=== PATIENT | female | born 1945 | race Caucasian/White ===

== ENCOUNTER 2019-01-23 06:10 | Inpatient (IN) | payer MEDICARE, OTHER, SELFPAY ==
[2019-01-09 09:02] VITALS: BMI 20.1
[2019-01-23] VITALS (17 sets, daily range): BP systolic 107–135; BP diastolic 51–86; PULSE 62–97; RESP 8–19; TEMP 36–36.6; O2SAT 95–100; BMI 19.6
--- NOTE | 2019-01-23 | DI.RAD.S_ITS ---
PROCEDURE: XR LUMBAR SPINE 2-3V INDICATIONS: NEW SCREWS INSERTED TECHNIQUE: 2 fluoroscopic views of the lumbar spine were acquired. COMPARISON: [facility], , -SPINE 2-3 VIEWS, 10/06/2016, 8:38. FINDINGS: Pedicle screws and rods at L4, L5, S1 in the expected position. Intervertebral body spacers at L4-L5 and L5-S1. Raytech sponge marker or overlying the right pedicle screws. IMPRESSION: L4-S1 fixation hardware is in expected position. Dictated by: Santos Layton M.D. on 01/23/2019 at 10:35 Approved by: Santos Layton M.D. on 01/23/2019 at 10:36
[2019-01-23] MEDS: LACTATED RINGERS 1,000 ML 42 ML IV (06:45)
--- NOTE | 2019-01-23 07:50 | PM.PREOP ---
Pre-operative Note Interval Note History & Physical reviewed/Exam performed by Physician: Yes Changes to H&P: No
[2019-01-23] MEDS: CEFAZOLIN 2 GM/100 ML FROZ.PIGGY IV (07:52)
--- NOTE | 2019-01-23 08:25 | SUR.OPER ---
Prone on spine table, head in foam head support, padded chest and pelvic supports, gel pad at knees, lower legs supported by pillows; nipples, genitalia and toes free of pressure, arms secured on foam padded arm boards at <90 degrees abduction. Tape over blanket at thigh secured to table.
[2019-01-23] MEDS: BUPIVACAINE 0.25% W/ EPI 30 ML VIAL INJ (08:32)
[2019-01-23] MEDS: BUPIVACAINE LIPOSOME 266 MG/20 ML VIAL INJ (08:33)
--- NOTE | 2019-01-23 09:56 | PM.OP.1 ---
Operative Date/Time/Diagnoses Date of procedure: 01/23/19 Time of procedure: 07:56 Pre-op diagnosis: 1. Hx of L4-5, L5-S1 fusion with hardware loosening 2. Lumbar radiculopathy Post-op diagnosis: same Procedure & Clinicians Procedure: 1. L4-5, L5-S1 Posterior segmental instrumentation with pedicle screw placement in L4, L5, S1 2. L4-5, L5-S1 segemental hardware removal with exploration of fusion 3. Revision L4-5, L5-S1 hemilaminectomy 4. L4-5, L5-S1 posterolateral fusion Same procedure as scheduled: Yes Indications: Patient has been having chronic back pain and worsening lumbar radiculopathy. Patient is 2 years post lumbar fusion and was doing well until 3 months ago. Patient has been having progressively worsening pain that limits her mobility and activity of daily living. Patient failed multiple conservative management with worsening pain weakness and numbness in her lower extremity. Patient has been having difficulty performing activity of daily living. After discussing risks benefits of treatment options, patient elected proceed with surgery. Surgeon: Nas Coughlin Electric Motor Repairman: Allyson Miles Click Yes if Unassisted: No Anesthesia Type: General Operative Notes Closure Type: primary Specimen(s): none sent Prosthetic devices, grafts, tissues, transplants, or devices: Globus revolve screws Estimated Blood Loss (mL): 50 Blood products transfused: none Procedure in detail: Patient was seen in the preoperative area. Risks and benefits of the surgery was discussed with the patient. Informed consent was obtained from the patient and placed in the chart. Surgical site was marked. Patient was taken to the operative room. General anesthesia was administered. Prophylactic antibiotic was given to the patient less than 30 min before the incision was made. Patient was placed into a prone position on the Tank table. Patient's back was then prepped and draped in the sterile fashion. Time-out was performed at this time. Using patient's previous scar incision was made over the L4-5 L5-S1 interval on the right side. Fascia was incised in line with skin incision. Patient's previously placed hardware over the L4-5 L5-S1 level was identified by dissecting down to the level the hardware using a Bovie and a Dickson. The locking caps which was removed using globus screwdriver. The locking radha was then removed from the tulips of the pedicle screws using a Lindsay. The pedicle screws were then removed using the screwdriver. The screws were found to have decreased purchase. At this time a mirror image incision was made on the left side. The fascia was incised in line with the skin incision. Patient's previously placed hardware on the left side was then removed in the same fashion as it was on the right side. The hardware was also found to have decreased purchase similar to the right side. The fusion mass on the left side was exposed by performing a left-sided hemilaminectomy at L4-5 L5-S1 level. The hemilaminectomy was performed at L4-5, L5-S1 using the Kerrison rongeur to undercut the lamina as well removing additional epidural scar tissue for purpose of decompressing the epidural space. The fusion mass was explored and was found have visible motion indicating pseudoarthrosis. Globus MARS retractor was inserted and docked onto the L4-5 L5-S1 posterolateral gutter. Using the power drill, posterior-lateral decortication was performed at L4-5 L5-S1 level until bleeding cortical bone was identified. The remaining bone grafting material was placed into the L4-5 L5-S1 posterior lateral gutter he order to accomplish posterolateral fusion at the L4-5 L5-S1 level. Using the double C-arm technique, pedicle screws were placed into the L4-L5 and S1 pedicles bilaterally. This was done by placing the Jamshidi needle into the pedicles, then placing the guidewires over the Jamshidi needle, and finally placing the cannulated screws over the guidewires bilaterally. Pedicle screws were increased to 7.5 mm in diameter in order to obtain better purchase. After the pedicle screws were placed, 2 titanium rods was locked into the heads of the pedicle screws using locking caps and torque limiting screwdriver. Total 6 pedicle screws were placed. After all the hardware was placed, and confirmed with AP and lateral C-arm imaging, the wound was then irrigated with sterile normal saline and packed with Ray-Maximus gauze for 3 min to accomplish hemostasis. After the gauze was removed the deep fascia was closed with #1 Vicryl suture. The subcutaneous layer was closed with 2-0 Vicryl. The skin was closed with skin adalberto. Patient tolerated the procedure well. There were no complications. Complications: none Post-operative Condition: stable Disposition: PACU Plan for aftercare: Admit to inpatient hospital
--- NOTE | 2019-01-23 10:45 | SUR.PHASEI ---
Patient A/O x 4. HSIEH's x 4. Tolerating po. Denies pain and nausea.
[2019-01-23] MEDS: SODIUM CHLORIDE 0.9% 1,000 ML 100 ML IV ×2 (11:29→22:00)
[2019-01-23] MEDS: HYDROCODONE/ACET 5/325 TABLET 2 TAB PO ×2 (11:44→17:40)
[2019-01-23] MEDS: hydrOXYzine pamoate 25 MG CAPSULE PO (12:43)
--- NOTE | 2019-01-23 13:30 | PT.IIE ---
Current Diagnoses Unspecified fracture of unspecified lumbar vertebra, subsequent encounter for fracture with nonunion (01/23/19) Other mechanical complication of other internal orthopedic devices, implants and grafts, initial encounter (01/23/19) Pain due to internal orthopedic prosthetic devices, implants and grafts, initial encounter (01/23/19) Surgery Performed Operation Date: 01/23/19 07:45 Actual Procedures p L4-S1 HWR, exploration of fusion, PSF L4-s1 with instrumentation - Nas Coughlin MD Surgical History (Last Updated 01/09/19 @ 09:45 by Emily Rangel RN) History of total right hip arthroplasty (Acute ~2009) Hx of appendectomy (Acute) Hx of hand surgery (Acute) Hx of tubal ligation (Acute) S/P lumbar fusion (Acute 10/06/16) Medical History (Last Updated 01/09/19 @ 09:45 by Emily Rangel RN) Arthritis (Acute) Atrial tachycardia (Acute ~09/2016) Back pain (Acute) Cervical spine pain (Acute) Former smoker (Acute) History of 1 spontaneous (Acute) Hypoglycemia (Acute) Impaired hearing (Acute) L3 vertebral fracture (Acute ~09/2018) Palpitations (Acute) Postoperative atrial fibrillation (Acute ~09/2016) Seasonal allergies (Acute) Physical Therapy Inpatient Evaluation/Re-Eval M1 PT/OT-IP Prior Functional Status Start: 01/23/19 14:54 Freq: NEEDED Status: Active Protocol: Document 01/23/19 13:30 AB (Rec: 01/23/19 15:10 AB [id number]) Medical Review Prior Functional Status Medical History Reviewed Yes Communication able to make needs known Mobility and Gait pt stated that she is independent with all mobilities and ambulation without AD; has used her crutches for 1-2 weeks prior to surgery due to back pain Social History Household Members spouse Living Arrangements House Number of Floors (Floors) One Floor Number of Stairs To Enter/Railing? 3 steps enter with L rail ascending Home Environment Standard Height Toilet,Walk in Shower,Built-In Shower Seat Home Equipment Front Wheel Walker,Crutches, Raised Toilet Seat Without Armrests Additional Social History Comment pt has a toilet safety frame M2 PT-IP Current Condition Start: 01/23/19 14:54 Freq: NEEDED Status: Active Protocol: Document 01/23/19 13:30 AB (Rec: 01/23/19 15:10 AB [id number]) Physical Therapy Current Condition Current Condition Evaluation Date 01/23/19 Treatment Diagnosis s/p L4-5, L5S1 fusion/lami; difficulty in walking Onset Date 01/23/19 Precautions Lumbar Precautions Log Roll,No Twisting,Limit Bending,Lifting Restriction of 10 lbs,Gait Belt above Incisional Area M3 PT-IP Subjective Start: 01/23/19 14:54 Freq: NEEDED Status: Active Protocol: Document 01/23/19 13:30 AB (Rec: 01/23/19 15:10 AB [id number]) Subjective Physical Therapy Visit Type Type Initial Evaluation Visit Start Time 13:30 Visit Stop Time 14:04 Total Visit Minutes 34 Number of CLIENT EVALUATOR Visits 0 Physical Therapy Visit Comments Patient Comments pt requesting to use the toilet Therapy Pain Assessment Pain When Pain Assessed At Rest Pain Present Pain Present Pain Reported Location Lower Back Intensity 4 Scale Used Numeric (1 - 10) Pain Behaviors Guarding Pain Management Techniques Timing of Activity with Medications M4 PT-IP Mobility and Gait Start: 01/23/19 14:54 Freq: NEEDED Status: Active Protocol: Document 01/23/19 13:30 AB (Rec: 01/23/19 15:10 AB [id number]) PT-Bed Mobility Assessment Rolling Level of Assist Standby Assistance Supine to Sit Supine to Sit Standby Assistance PT-Transfer Assessment Sit to and From Stand Sit to and from Stand Minimal Assistance,1 Person Assistance,Use of Upper Extremities Equipment Transfer Assistive Device Gait Belt,Front Wheeled Walker Orthotic/Prosthetic Devices or Brace: No Transfers Transfer Destination Toilet Transfer Technique pt ambulated using FWW Transfer Ability Level of Assist Minimal Assistance,1 Person Assistance,Use of Upper Extremities Comments Mobility Comments BP: 141/72 pt completed log roll supine to sit SBA and cues for techniques. pt was able to sit on EOB SBA. completed sit to stand min A and cues. pt ambulated towards the toilet using FWW ~ 12 ft min A and cues. pt required mod A for controlled descent to the the toilet. completed sit to stand from the toilet using grab bar to assist min A and cues. ambulated towards the sink using FWW ~ 10 ft and was able to maintain standing leanign on counter for support CGA while doing handwashing. pt agreed to sit up on the chair. ambulated using FWW towards the chair min A. positioned pt on the chair. call light and table placed within reach. Gait Assessment Gait Gait Assistance Required: Minimum Assistance Distance (Feet) 12 Able to Maintain Weight Bearing Status Yes During Gait Assistive Devices Assistive Device Gait Belt,Front Wheeled Walker Orthotic/Prosthetic Devices or Brace: No Gait Deviations General Gait Pattern Antalgic,Decreased Stride Length,Decreased Feet Clearance Factors Limiting Gait Function Factors Limiting Gait Function Decreased Activity Tolerance, Decreased Strength,Pain,Poor Balance,Poor Safety Awareness PT-Balance Assessment Sitting Balance and Reactions Static Sitting Balance Ability Good Dynamic Sitting Balance Ability Good Standing Balance and Reactions Static Standing Balance Ability Fair Dynamic Standing Balance Ability Fair Device Used FWW M5 PT-IP Objective Assessments Start: 01/23/19 14:54 Freq: NEEDED Status: Active Protocol: Document 01/23/19 13:30 AB (Rec: 01/23/19 15:10 AB [id number]) Orientation Orientation/Cognition Level of Alertness Alert Orientation Name,Place,Situation Safety Awareness Decreased Safety Awareness Gross Range of Motion Lower Extremity ROM Assessment Within Functional Limits Strength Lower Extremity Strength Assessment Bilaterally Impaired Comments Strength Comments RLE: 4-/5 LLE: 3+/5 Coordination Assessment Gross Coordination Gross Coordination WNL Muscle Tone Muscle Tone WNL Yes M6 PT-IP Treatment Start: 01/23/19 14:54 Freq: NEEDED Status: Active Protocol: Document 01/23/19 13:30 AB (Rec: 01/23/19 15:10 AB [id number]) Physical Therapy Treatment Education Education Provided Precautions,Weight Bearing Status,Post-Op Packet,Safety M7 PT-IP Assessment and Plan Start: 01/23/19 14:54 Freq: NEEDED Status: Active Protocol: Document 01/23/19 13:30 AB (Rec: 01/23/19 15:10 AB [id number]) PT Summary Assessment and Plan Potential Rehabilitation Potential Good Status of Condition at Evaluation Stable Summary Impairments Pain,ROM,Strength,Balance, Coordination,Sensation,Bed Mobility,Transfers,Gait, Activity Tolerance Assessment Summary pt requiring min A with mobility but will likely progress during hospital stay. pt plans to go home with spouse to assist her. will conduct caregiver training when appropriate and also will complete stair training prior to d/c. Goals Bed Mobility Goal Independent Transfer Goal Standby Assistance,Front Wheeled Walker Gait Goal Standby Assistance,Front Wheel Walker Gait Distance 150 Other Goals up/down 3 steps using L rail SBA Days to Meet Goals 5 Frequency of Treatment Frequency Of Treatment Twice a Day Treatment Plan Physical Therapy Treatment Plan Bed Mobility Training,Transfer Training,Gait Training, Therapeutic Exercise,Balance Retraining,Post Op Education, Discharge Planning,Hot or Cold Pack,Neuromuscular Re-ed, Coordination Retraining,Manual Therapy Other Recommendations and Next Treatment ambulation, caregiver training Focus , stair climbing Recommendations To Nursing Amount of Assist Needed 1 Person Assist Discharge Recommendations PT Discharge Recommendations Home with Assistance
--- NOTE | 2019-01-23 14:04 | PC.NURSE ---
Day Shift- Report rec'd from KP Rodriguez in PACU at 1040. Pt arrived to unit room 226 at 1115 via bed. A&OX4, oriented to call light, able to make needs known. Pt's Uli at bedside. Pt reports 4-5/10 aching to lower back radiating at times to abd. PRN [place] 0.5 tab given at 1145 per pt request. Upon reassessment, pain 4/10 and reports spasms. PRN Vistaril given at 1245. Lower back dressing CDI, CMS+, denies numbness or tingling. High fall risk precautions in place, bed alarm on. Pt [place], states left her hearing aids at home.
[2019-01-23] MEDS: CEFAZOLIN 1 GM/50 ML FROZ.PIGGY IV ×2 (16:34→23:46)
[2019-01-23] MEDS: AMLODIPINE 5 MG TABLET 2.5 MG PO (17:41)
[2019-01-23] MEDS: DOCUSATE 100 MG CAPSULE PO (21:56)
[2019-01-23] MEDS: HYDROCODONE/ACET 5/325 TABLET 1 TAB PO (21:56)
[2019-01-23] MEDS: SENNOSIDES 8.6 MG TABLET 17.2 MG PO (21:56)
[2019-01-24] VITALS: BP 114/47; PULSE 70; RESP 16; TEMP 36.3; O2SAT 97
--- NOTE | 2019-01-24 00:02 | PC.NURSE ---
Addendum entered by Mindy Escalante R.N. 01/24/19 05:12: States pain is only 3/10 and requests only 1/2 tab of ordered Vicodin. Describes pain as sore or an ache. Original Note: Patient is alert and oriented; [place] without hearing aids. Breath sounds CTA with RA sat of 97%. HRR. Denies nausea. BT hypoactive but patient states she is passing flatus. Able to turn self. Out of bed with walker and SBA; denies weakness or pain. Voiding without dysuria, frequency or urgency. Dressing to back is CDI. CMS is intact bilaterally. Refusing SCD's despite DVT prevention information so reminded to ankle wave; patient verbalizes understanding. Fall risk score is high and bed alarm is activated. Spouse rooming in.
[2019-01-24 04:10] VITALS: BP 116/57; PULSE 62; RESP 16; TEMP 36.3; O2SAT 95
[2019-01-24] MEDS: HYDROCODONE/ACET 5/325 TABLET 2 TAB PO (05:06)
[2019-01-24 05:28] LABS: Hematocrit 33.9 % (36-46); Hemoglobin 11.4 g/dL (12.0-16.0)
--- NOTE | 2019-01-24 07:44 | PM.DS.1 ---
History of Present Illness History of Present Illness Date Patient Seen: 01/24/19 Time Patient Seen: 07:44 Chief complaint: [id number] Narrative: Patient's pain is mild. Denies fever chills. No nausea / vomiting. Discharge Providers Provider Date of admission: 01/23/19 06:10 Discharge Date: 01/24/19 Primary care physician: Avel Ramachandran MD Consults: 01/23/19 11:08 Consult to Occupational Therapy Evaluate & Treat Comment: Physician Instructions: Evaluate and treat Consult to Physical Therapy Evaluate & Treat Comment: Physician Instructions: Evaluate and Treat 01/23/19 11:28 Consult to Dietitian, Adult Routine Comment: Reason For Exam: 10 pound weight loss over last 4 months due to malorie Discharge provider: Samuel Mccain PA-C Summary Hospital Course Discharge Diagnosis: 1. Hx of L4-5, L5-S1 fusion with hardware loosening 2. Lumbar radiculopathy Hospital Course: 1. L4-5, L5-S1 Posterior segmental instrumentation with pedicle screw placement in L4, L5, S1 2. L4-5, L5-S1 segemental hardware removal with exploration of fusion 3. Revision L4-5, L5-S1 hemilaminectomy 4. L4-5, L5-S1 posterolateral fusion Same procedure as scheduled: Yes Indications: Patient has been having chronic back pain and worsening lumbar radiculopathy. Patient is 2 years post lumbar fusion and was doing well until 3 months ago. Patient has been having progressively worsening pain that limits her mobility and activity of daily living. Patient failed multiple conservative management with worsening pain weakness and numbness in her lower extremity. Patient has been having difficulty performing activity of daily living. After discussing risks benefits of treatment options, patient elected proceed with surgery. Surgeon: Nas Coughlin Site Safety Manager: Allyson Miles Click Yes if Unassisted: No Anesthesia Type: General Operative Notes Closure Type: primary Specimen(s): none sent Prosthetic devices, grafts, tissues, transplants, or devices: Globus revolve screws Estimated Blood Loss (mL): 50 Blood products transfused: none Patient consented to the above-mentioned procedure. Patient taken to the operating room underwent above-mentioned procedure and is recovering well back in her room. Patient's pain is been mild. Denies fever chills. Her is home to assist her. Patient worked with physical therapy and did well yesterday. She will work with physical therapy this morning and be discharged today in stable condition. Exam Vital Signs (past 8 hours): - 01/24/19 00:00 01/24/19 04:10 Temperature 97.3 F L 97.4 F L Pulse Rate 70 62 Respiratory Rate 16 16 Blood Pressure 114/47 L 116/57 L Pulse Oximetry 97 95 Fraction of Inspired Oxygen 28 Oxygen Delivery Method Room Air Oxygen Flow Rate 0 Narrative Exam Narrative: Pleasant 73-year-old female in no apparent distress. Patient resting comfortably in bed. Patient able to move easily dissect up in bed. Her dressing is clean, dry and intact. Motor functions intact to the bilateral lower extremities. Sensation grossly intact to light touch. Both legs are warm and dry. Objective Labs Result Diagrams: 01/24/19 05:05 Labs: Laboratory Results - last 24 hr 01/24/19 05:05 Hgb 11.4 L Hct 33.9 L Discharge Plan Discharge Plan Patient Disposition: Home Discharge comment: DC home today after PT Discharge Med Rec/Prescriptions Prescriptions: New hydrocodone-acetaminophen 5-325 mg Tablet 1 tab PO Q4-6H Qty: 60 RF: 0 Continued amiodarone 200 mg Tablet 200 mg PO BID PRN (Reason: Tachycardia) RF: 0 hydrocodone-acetaminophen 5-325 mg Tablet 1 tab PO BID RF: 0 amlodipine [Norvasc] 5 mg Tablet 2.5 mg PO QPM RF: 0 multivitamin Capsule 1 cap PO DAILY RF: 0 Xarelto 20 mg Tablet 20 mg PO DAILY Qty: 0 RF: 0 Discontinued acetaminophen-codeine [Tylenol-Codeine #3] 300-30 mg Tablet 1 tab PO BID RF: 0 Follow up/Referrals: Avel Ramachandran MD [Primary Care Provider] - Nas Coughlin MD [Physician] - (2 wks) Provider Discharge Instructions Diet: Diet as Tolerated Activity: Limit bending, twisting, lifting Cold/Heat Therapy: ice as needed Skin/Wound/Dressing Care Report to your healthcare provider any signs of infection, such as:: chills, fever, increased pain, unusual drainage and unusual redness Dressing: keep clean Discharge Data Primary Care Provider: Avel Ramachandran Quality VTE Deep Vein Thrombosis/Pulmonary Embolism Present on Admission: No
[2019-01-24 08:00] VITALS: BP 110/63; PULSE 64; RESP 15; TEMP 36.4; O2SAT 98
[2019-01-24] MEDS: HYDROCODONE/ACET 5/325 TABLET 1 TAB PO (08:47)
[2019-01-24] MEDS: SODIUM CHLORIDE 0.9% FLUSH 10 ML IV (08:49)
--- NOTE | 2019-01-24 08:55 | CM.DANOTE ---
Discharge Planning/Care Management DCP: assessment: case received, EMR reviewed. DC order and summary from this morning at 0757 by ortho SASHA Mccain is noted. The DC summary also says pt will d/c today when cleared by PT. Met now with pt and her Uli. Introduced self and role. Pt is a 73 year old female who admitted yesterday for a planned spinal surgery. Surgeon: Dr. Coughlin Payer: Medicare and [employer]. Pt confirms she did well with PT last night and is hopeful all will go well today and she can return home. PT does plan to work with Uli for caregiver training. Will follow prn for any d/c needs that may arise. CM Discharge Assessment Start: 01/24/19 08:54 Freq: Status: Active Protocol: Document 01/24/19 08:54 ITV (Rec: 01/24/19 08:55 ITV [id number]) Discharge Planning Assessment Advance Directives? Yes Advance Directives on File Yes History Provided By Patient,Family Member,Medical Record Prior Living Arrangements House Household Members spouse Is patient alert and oriented? Yes Discharge Plan Home Whiteboard Updated in Patient Room with Yes name and ext. # of Wheelchair Rental Clerk Review Status In Process Pre-Anesthesia Assessment Start: 01/09/19 09:02 Freq: Status: Complete Protocol: Document 01/09/19 09:02 CAB (Rec: 01/09/19 09:45 CAB [id number]) Pre-Anesthesia Assessment PAC Comment Pt does not want fentanyl or oxycodone. She states they caused Afib postoperatively w /TLIF 2016 Patient Information Reviewed Via Phone Assessment Assessment Completed With Patient Diagnostic Results BMP/CMP,CBC,EKG Comment Outside labs/EKG scanned to record Primary Care Provider Avel Ramachandran Seen Specialist in Last 12 Months Yes Specialist Seen Demolition Specialist,Orthopedist Primary Language [place] Tour Bus Driver Required No Height 167.64 cm Weight 56.699 kg Body Mass Index (BMI) 20.1 Hearing Ability Normal,Hard of Hearing,Use of Hearing Aid Dentition Type Full- Upper Barriers to Learning None Other Aids No Hx Anesthesia Reactions Yes: Pt states fentanyl/ oxycodone caused Afib postoperative too strong Hx Family Anesthesia Reaction No Hx Malignant Hyperthermia No Hx Blood Transfusions No Anesthesia Review Requested No alcohol intake current alcohol intake frequency holidays/special occasions only Smoking Status Former smoker how long ago did patient quit smoking Quit Substance Use Type does not use Pain Present Pain Reported Musculoskeletal Symptoms Abnormal Gait,Back Pain, Difficulty Walking,Joint Pain, Limited Range of Motion History of Falling (Recent or History of No ) Patient is completely paralyzed or No completely immobile Prosthesis or Orthotic Device Crutches Mental Status Oriented to own ability Is patient on oxygen? No Does patient have STAFFROD/SOB No Hx Sleep Apnea No Currently Taking a Beta Geovanna No Can You Climb a Flight of Stairs Without Yes SOB Hx Chest Pain No Hx SOB No Hx Syncope or Dizziness No Anti-Coagulant Therapy Yes: Xarelto-pt to hold 3 days prior per Surgeon's office Has a Demolition Specialist Yes: Dr. Hamlin-last visit 01/14 Cardiac Testing Yes: ZIO patch 08/14/17, atrial tachycardia Hx Pacemaker/ICD No Pacemaker Rep Required? No Cardiac Clearance Received Yes Comment Outside cardiac records scanned to record Diet Type At Home Regular dysphagia No Urinary Catheter Present No Hx Urinary Self Catheterization No Diabetes No Patient No Lactating No Hx Drug Resistant Organism No Presence of External or Internal Medical Yes: Lumbar hardware, right Devices hip prosthesis Have you traveled outside the [facility] States in the last 30 days? Marital Status Lives With spouse Prior Living Arrangements House Number of Floors (Floors) One Floor Support System Spouse Patient Discharge Plan Description Return Home Comment Pt advised overnight length of stay per surgeon's office Feels Safe in Current Environment Yes Been Physically Hurt or Threatened By a No Person in Current Environment Do you have thoughts of harming yourself None or others? Are you currently considering suicide? No Do you have a plan to hurt yourself or No Plan others? Do You Have Any Spiritual Beliefs That No May Affect Your HC Choices? Do You Have Any Cultural Practices That No May Affect Your HC Choices? Comment Sade Who Can We Speak to About Patient's Care Family, friends Identifying Code for Release of Patient Declines to issue Information Health Care Proxy/Next of Kin Uli () Health Care Proxy Emergency Contact Name Taco (son) Emergency Contact Advance Directives? Yes Advance Directives on File Yes PAC Instructions Durable medical equipment, Medications to take/avoid, Nasal antibiotic,No ETOH/ petroleum product on skin DOS, NPO,Post-op transportation,Pre -op antibiotic,Sturdy shoes/ comfortable clothes,Do not bring valuables and remove jewelry
--- NOTE | 2019-01-24 10:33 | PT.IPTN ---
Current Diagnoses Unspecified fracture of unspecified lumbar vertebra, subsequent encounter for fracture with nonunion (01/23/19) Other mechanical complication of other internal orthopedic devices, implants and grafts, initial encounter (01/23/19) Pain due to internal orthopedic prosthetic devices, implants and grafts, initial encounter (01/23/19) Surgery Performed Operation Date: 01/23/19 07:45 Actual Procedures p L4-S1 HWR, exploration of fusion, PSF L4-s1 with instrumentation - Nas Coughlin MD Physical Therapy Treatment Note M2 PT-IP Current Condition Start: 01/23/19 14:54 Freq: NEEDED Status: Active Protocol: Document 01/23/19 13:30 AB (Rec: 01/23/19 15:10 AB [id number]) Physical Therapy Current Condition Current Condition Evaluation Date 01/23/19 Treatment Diagnosis s/p L4-5, L5S1 fusion/lami; difficulty in walking Onset Date 01/23/19 Precautions Lumbar Precautions Log Roll,No Twisting,Limit Bending,Lifting Restriction of 10 lbs,Gait Belt above Incisional Area M3 PT-IP Subjective Start: 01/23/19 14:54 Freq: NEEDED Status: Active Protocol: Document 01/24/19 10:00 HH (Rec: 01/24/19 10:33 [id number]) Subjective Physical Therapy Visit Type Type Treatment Note Visit Start Time 10:00 Visit Stop Time 10:20 Total Visit Minutes 20 Notes Pt's attended session. Number of DIRECTOR OF QUANTITATIVE RESEARCH Visits 0 Physical Therapy Visit Comments Patient Comments Pt agreeable to mobilize with PT Therapy Pain Assessment Pain When Pain Assessed At Rest Pain Present Pain Present Pain Reported Location Lower Back Intensity 2 Scale Used Numeric (1 - 10) Pain Management Techniques Timing of Activity with Medications M4 PT-IP Mobility and Gait Start: 01/23/19 14:54 Freq: NEEDED Status: Active Protocol: Document 01/24/19 10:00 HH (Rec: 01/24/19 10:33 [id number]) PT-Bed Mobility Assessment Rolling Type of Rolling Log Rolling,Roll to Right Level of Assist Independent Supine to Sit Supine to Sit Independent Sit to Supine Sit to Supine Independent Scooting Scooting to Edge of Bed Independent PT-Transfer Assessment Sit to and From Stand Sit to and from Stand Standby Assistance,Use of Upper Extremities Equipment Transfer Assistive Device Gait Belt,Front Wheeled Walker Orthotic/Prosthetic Devices or Brace: No Transfers Transfer Destination Bed,Chair Transfer Technique pt ambulated using FWW Transfer Ability Level of Assist Standby Assistance,Use of Upper Extremities Comments Mobility Comments Pt completed supine <> sit with log roll and sidelying push up with SBA. She did transfer from stand <> bed with SBA and FWW. Denied discomfort or sign of LOB. Gait Assessment Gait Gait Assistance Required: Standby Assistance Distance (Feet) 400 Able to Maintain Weight Bearing Status Yes During Gait Assistive Devices Assistive Device Gait Belt,Front Wheeled Walker Orthotic/Prosthetic Devices or Brace: No Gait Deviations General Gait Pattern Within Normal Limits,Flexed Trunk Factors Limiting Gait Function Factors Limiting Gait Function Decreased Activity Tolerance, Decreased Strength,Pain,Poor Balance,Poor Safety Awareness Comments Gait Comments Pt amb the entire AC unit with FWW SBA, along with step over gait. Stair Climbing Assessment Evaluation Level of Assist On Stairs Standby Assistance Devices Stair Climbing Assistive Devices Left Railing Technique/Endurance Stair Climbing Direction Ascend and Descend Stair Climbing Technique Step Over Step Number of Steps Climbed 3 Stair Climbing Set # Repetitions (reps) 2 M5 PT-IP Objective Assessments Start: 01/23/19 14:54 Freq: NEEDED Status: Active Protocol: Document 01/23/19 13:30 AB (Rec: 01/23/19 15:10 AB [id number]) Orientation Orientation/Cognition Level of Alertness Alert Orientation Name,Place,Situation Safety Awareness Decreased Safety Awareness Gross Range of Motion Lower Extremity ROM Assessment Within Functional Limits Strength Lower Extremity Strength Assessment Bilaterally Impaired Comments Strength Comments RLE: 4-/5 LLE: 3+/5 Coordination Assessment Gross Coordination Gross Coordination WNL Muscle Tone Muscle Tone WNL Yes M6 PT-IP Treatment Start: 01/23/19 14:54 Freq: NEEDED Status: Active Protocol: Document 01/23/19 13:30 AB (Rec: 01/23/19 15:10 AB [id number]) Physical Therapy Treatment Education Education Provided Precautions,Weight Bearing Status,Post-Op Packet,Safety M7 PT-IP Assessment and Plan Start: 01/23/19 14:54 Freq: NEEDED Status: Active Protocol: Document 01/24/19 10:00 HH (Rec: 01/24/19 10:33 HH [id number]) PT Summary Assessment and Plan Potential Rehabilitation Potential Excellent Status of Condition at Evaluation Stable Summary Progress Towards Goals Safe For Discharge,Goals Met Assessment Summary Pt improved significantly with amb distance, stair climbing and overall bed mobility. Pt performed all mobility mod I / SBA. She was able to recall all precautions and appeared very steady and safe. Pt met all her rehab goals and she is now safe to be d./c home with assistance as needed. Frequency of Treatment Frequency Of Treatment Discharge Recommendations To Nursing Amount of Assist Needed Standby Assistance Discharge Recommendations PT Discharge Recommendations Home with Assistance
--- NOTE | 2019-01-24 10:34 | OT.IP.TRT ---
Current Diagnoses Unspecified fracture of unspecified lumbar vertebra, subsequent encounter for fracture with nonunion (01/23/19) Other mechanical complication of other internal orthopedic devices, implants and grafts, initial encounter (01/23/19) Pain due to internal orthopedic prosthetic devices, implants and grafts, initial encounter (01/23/19) Surgery Performed Operation Date: 01/23/19 07:45 Actual Procedures p L4-S1 HWR, exploration of fusion, PSF L4-s1 with instrumentation - Nas Coughlin MD Occupational Therapy Treatment Note M3 OT- IP Subjective and Pain Start: 01/24/19 10:31 Freq: Status: Active Protocol: Document 01/24/19 10:32 [facility] (Rec: 01/24/19 10:34 [facility] [id number]) OT- Subjective Occupational Therapy Visit Type Type Patient Refusal Notes Approached pt for OT eval, Pt has had back surgery two years ago and pt stated did not need OT eval as she and her will be able to manage at home [facility] have good understanding for all OT needs. Therefore discharge OT eval orders, pt to discharge home today with .
--- NOTE | 2019-01-24 11:09 | PC.NURSE ---
Day Shift- Lower back dressing changed to coversite per verbal order by Nika Guerrero around 0845. Dressing changed at 0905. Lower back dressing removed for small amount of old dried blood to bilateral gauze dressings. Xeroform left in place over bilateral incisions, adalberto intact, incisions well approximated, no s/S of infection. Surrounding skin cleansed with NS, coversite place, pt tolerated well. Incentive spirometer given and instructed on use, pt able to demonstrate properly. Pain controlled with 0.5 tab scheduled Power this AM. Rates 2/10 upon rest and 4/10 with movement to lower back aching. CMS+, PPP, denies numbness or tingling. Discharge packet reviewed with pt and her Uli at bedside. All questions answered. No further voiced concerns and pt states is ready to go home. Prescription for Power given. pt request Operative report for personal use. Form filled and signed for release of PHI, Operative printed and given to pt. Pt left unit at 1105, via wheelchair with all belongings in no distress with AUTOMATION DESIGN ENGINEER escort and her is present to drive her home.
== END 2019-01-24 11:05 | disposition home or self-care (01) | DRG 460 ==
PROVIDERS: Admitting Provider Orthopaedic Surgery Orthopaedic Surgery of the Spine; Family Provider Family Medicine; PCP Family Medicine; Visit Provider Orthopaedic Surgery Orthopaedic Surgery of the Spine
PROC: 0SG00K1 Fusion of Lumbar Vertebral Joint with Nonautologous Tissue Substitute, Posterior Approach, Posterior Column, Open Approach (ICD-10-PCS; principal; 2019-01-23 07:45)
DX: T84.84XA Pain due to internal orthopedic prosthetic devices, implants and grafts, initial encounter (principal); M96.0 Pseudarthrosis after fusion or arthrodesis; M96.1 Postlaminectomy syndrome, not elsewhere classified; R01.1 Cardiac murmur, unspecified; E78.5 Hyperlipidemia, unspecified; I48.91 Unspecified atrial fibrillation; M79.7 Fibromyalgia; Z87.891 Personal history of nicotine dependence; Z79.01 Long term (current) use of anticoagulants
CPT/HCPCS: 36415; 72100; 76000; 85014; 85018; 94760; 97116; 97161; 97530; C1776; C9290; J0690; J1100; J1170; J2250; J2405; J2704